=== PATIENT | female | born 1990 | race Caucasian/White ===

== ENCOUNTER 2025-05-13 17:21 | Outpatient (CLI) | payer BC, SELFPAY ==
--- OUTSIDE RECORDS SUMMARY | 2025-05-06 10:00 | XMS_ITS | Encounter Summary ---
Author Organization [facility] Address [address] [place] [address] Care Team Providers Care Retirement Actuary Name Role Phone Dario Jameson MD Primary Care Provider + Reason for Visit * Reason Comments Follow-up Hypertension weight loss efforts Encounter Details Date Type Department Care Team (Late st Contact Info) Description 05/06/2025 10:00 AM EST Office Visit [facility] [address] [place] [address] Dario Jameson MD [address] [place] [address] Primary hypertension (Primary Dx); Mild episode of depression; Class 2 severe obesity due to excess calories with serious comorbidity and body mass index (BMI) of 36.0 to 36.9 in adult Social History Tobacco Use Types Packs/Day Years Used Date Smoking Tobacco: Former Cigarettes 1 7 2 2016 Smokeless Tobacco: Never Comments:vapes Alcohol Use Standard Drinks/Week Comments Yes 0 (1 standard drink = 0.6 oz pur e alcohol) PHQ-2 Answer Date Recorded Retired PHQ-9: Brief Depression Severity Measure Score 0 10/16/2021 PHQ-2 Answer Date Recorded Patient Health Questionnaire-2 Score 0 07/09/2024 Comments No Sex and Gender Information Value Date Recorded Sex Assigned at Not on file Legal Sex Female 3:48 PM EDT Gender Identity Not on file Sexual Orientation Not on file Occupation Industry Job Start Date Job End Date unemployed Not on file Not on file Not on file Travel History Travel Start Travel End [place] 04/19/2025 04/21/2025 documented as of this encounter Last Filed Vital Signs Vital Sign Reading Time Taken Comments Blood Pressure 128/85 05/06/2025 9:59 AM EST Pulse 88 05/06/2025 9:59 AM EST Temperature 36.9 C (98.4 F) 05/06/2025 9:59 AM EST Respiratory Rate 20 05/06/2025 9:59 AM EST Oxygen Saturation 97% 05/06/2025 9:59 AM EST Inhaled Oxygen Concentration - - Weight 104 kg (230 lb 3.2 oz) 05/06/2025 9:59 AM EST Height 170.2 cm (5' 7 ) 05/06/2025 9:59 AM EST Body Mass Index 36.05 05/06/2025 9:59 AM EST documented in this encounter Progress Notes * Dario Jameson MD - 05/06/2025 10:00 AM EST Chief Complaint Patient presents with Follow-up Hypertension weight loss efforts Subjective Ellen Lynch is a 35 y.o. who presents for hypertension and obesity follow- up. She reports blood pressures of 120/80 at home with use of her Zestoretic. She continues on Trintellix for depressionwith anxious features. Symptoms are very well-controlled. Regarding obesity the low-dose Qsymia caused and over caffeinated feeling and she discontinued the medicine after a single dose The following portions of the patient's history were reviewed and updated as appropriate: allergies, current medications, past family history, past medical history, past social history, past surgicalhistory, and problem list. Review of Systems Objective Vital Signs: BP 128/85 Pulse 88 Temp 98.4 ??F (36.9 ??C) Resp 20 Ht 170.2 cm (67 ) Wt 104 kg (230 lb 3.2 oz) SpO2 97% BMI 36.05 kg/m?? Physical Exam Vitals reviewed. Constitutional: Appearance: Normal appearance. Neurological: Mental Status: She is alert. Psychiatric: Mood and Affect: Mood normal. Thought Content: Thought content normal. Result Review Assessment and Plan Diagnoses and all orders for this visit: 1. Primary hypertension (Primary) - lisinopril-hydrochlorothiazide (PRINZIDE,ZESTORETIC) 10-12.5 MG per tablet; Take 1 tablet by mouth Daily. Dispense: 90 tablet; Refill: 1 2. Mild episode of depression - Vortioxetine HBr (Trintellix) 10 MG tablet tablet; Take 1 tablet by mouth Daily With Breakfast. Dispense: 30 tablet; Refill: 5 3. Class 2 severe obesity due to excess calories with serious comorbidity and body mass index (BMI)of 36.0 to 36.9 in adult Plan 1. Hypertension. Controlled. Continue lisinopril HCTZ 02/24.5. Reassess in 6 months 2. Depression. In remission with use of Trintellix. Continue Trintellix 10 mg daily. Reassess in 6 months 3. Class II obesity. Weight has increased since last visit. Patient willing to retry low-dose Qsymia to assess if side effects wane. Patient will contact office with results of trial. If ineffective will discuss further weight loss options at follow-up Follow Up Return in about 6 months (around 11/04/2025) for Annual(no pap), Annual. Patient was given instructions and counseling regarding her condition or for health maintenance advice. Please see specific information pulled into the AVS if appropriate. documented in this encounter Plan of Treatment Upcoming Encounters Date Type Department Care Team (Late st Contact Info) Description 11/04/2025 2:15 PM EDT Office Visit [facility] [address] [facility] [place] [address] Dario Jameson MD [address] [address] documented as of this encounter Visit Diagnoses Diagnosis Primary hypertension- Primary Unspecified essential hypertension Mild episode of depression Depressive disorder, not elsewhere classified Class 2 severe obesity due to excess calories with serious comorbidity and body mass index (BMI) of 36.0 to 36.9 in adult documented in this encounter Additional Health Concerns Assessment Noted Time PHQ-2 Depression Total Score: 4 05/23/19 24 4:11 PM EST documented as of this encounter Care Teams Retirement Actuary Relationship Specialty Start Date End Date Dario Jameson MD [address] [place] [address] PCP - General Family Medicine 10/16/21 documented as of this encounter
[2025-05-13 20:33] LABS: Influenza A, PCR Not Detected (NotDetected); Influenza B, PCR Not Detected (NotDetected)
[2025-05-13 20:55] LABS: Monoscreen (Rapid) Negative (Negative)
[2025-05-13 23:28] LABS: Coronavirus 19, PCR Detected (NotDetected)
--- OUTSIDE RECORDS SUMMARY | 2025-05-14 12:16 | XMS_ITS | Clinical Summary ---
Author Organization [facility] Address [address] [place] [address] Care Team Providers Care First Dyer Name Role Phone Dario Jameson MD Primary Care Provider + Allergies Active Allergy Reactions Criticality Noted Date Comments Tirzepatide GI Intolerance High 08/13/2024 Severe nausea Medications levonorgestrel (MIRENA) 20 MCG/24HR IUD 1 each by Intrauterine route 1 (One) Time. Active omeprazole (priLOSEC) 20 MG capsule Take 1 capsule by mouth Daily. Pt takes OTC Active ondansetron ODT (ZOFRAN-ODT) [address] 1 tablet on the tongue Every 8 (Eight) Hours As Needed for Nausea. 30 tablet 025 Active lisinopril-hydroc hlorothiazide (PRINZIDE,ZESTORE TIC) 10-12.5 MG per tabletIndications :Primary hypertension Take 1 tablet by mouth Daily. 90 tablet 1 025 Active Vortioxetine HBr (Trintellix) 10 MG tablet tabletIndications :Mild episode of depression Take 1 tablet by mouth Daily With Breakfast. 30 tablet 5 025 Active Phentermine-Topir amate ER (Qsymia) 3.75-23 MG capsule sustained-release 24 hrIndications:Cla ss 1 obesity due to excess calories without serious comorbidity with body mass index (BMI) of 34.0 to 34.9 in adult Take 1 each by mouth Daily. 14 capsule 025 2024 Discontinued Vortioxetine HBr (Trintellix) 10 MG tablet tabletIndications :Mild episode of depression Take 1 tablet by mouth Daily With Breakfast. 30 tablet 3 025 2024 Discontinued(R eorder) lisinopril-hydroc hlorothiazide (PRINZIDE,ZESTORE TIC) 10-12.5 MG per tabletIndications :Primary hypertension Take 1 tablet by mouth once daily 90 tablet 025 2024 Discontinued lisinopril-hydroc hlorothiazide (PRINZIDE,ZESTORE TIC) 10-12.5 MG per tabletIndications :Primary hypertension Take 1 tablet by mouth once daily 90 tablet 025 2024 Discontinued(R eorder) Active Problems Problem Noted Date Diagnosed Date Primary hypertension 07/09/2024 Assessment & Plan (08/13/2024 4:45 PM EDT): Hypertension is stable and controlled Continue current treatment regimen. Dietary sodium restriction. Weight loss. Blood pressure will be reassessed in 3 months. Assessment & Plan (07/09/2024 4:34 PM EST): Patient has new onset Hypertension Ambulatory BP monitoring Medication changes per orders. Dietary sodium restriction. Counseled on importance of healthy eating and regular aerobic exercise Blood pressure will be reassessed in 4 weeks. Class 2 severe obesity due t o excess calories with serious comorbidity and body mass index (BMI) of 36.0 to 36.9 in adult 06/20/2023 Assessment & Plan (08/13/2024 4:46 PM EDT): Condition is unchanged and she experienced side effects of treatment. A trial of Wegovy will be initiated. Patient given 0.25 mg sample in office today and warned of same side effect profile as Zepbound. Patient will contact the office if there are side effects. If she is tolerating medication after her second dose she will be given a prescription which is anticipated to require a prior authorization. Weight will be reassessed in 3 months. If GLP-1 agonist or not tolerated phentermine is a reasonable alternative Assessment & Plan (07/09/2024 4:35 PM EST): Patient's (Body mass index is 34.9 kg/m .) indicates that they are obese (BMI >30) with health conditions that include hypertension . Weight is unchanged. BMI is above average; BMI management plan is completed. We discussed portion control, increasing exercise, and pharmacologic options including Zepbound . Surveillance labs ordered today Patient to begin Zepbound 2.5 mg in combination with reduced calorie diet. Due to associated nausea from previous use we will uptitrate to 5 mg at follow-up and likely continue 5 mg dosing for an extended period of time so patient can develop some tolerance to the side effects Assessment & Plan (08/15/2023 4:53 PM EDT): I agree with the patient that I suspect she had a viral illness as opposed to reaction to tirzepatide. She will restart tirzepatide 2.5 mg weekly. Continue ongoing lifestyle changes with both aerobic training and resistance training as well as dietary changes. Return for reassessment in 8 weeks Assessment & Plan (06/20/2023 5:06 PM EST): Patient's (Body mass index is 34.68 kg/m .) indicates that they are obese (BMI >30) with health conditions that include GERD . Weight is improving with lifestyle modifications. BMI is above average; BMI management plan is completed. We discussed portion control, increasing exercise, and pharmacologic options including tirzepatide . Patient will start Zepp bound 2.5 mg weekly then increasing to 5 mg weekly. She will return next week for baseline metabolic labs. Patient will follow-up to reassess her weight in 8 weeks. Side effects of medication including GI side effects were discussed. Mild episode of depression 06/20/2023 Assessment & Plan (06/20/2023 5:07 PM EST): Patient's depression is recurrent and is mild without psychosis. Their depression is currently in full remission and the condition is improving with treatment. This will be reassessed at the next regular appointment. F/U as described:patient will continue current medication therapy. Gastroesophageal reflux disease 08/16/2017 Vaginal delivery 11/29/2013 Anxiety and depression Encounters Date Type Department Care Team Description 05/06/2025 10:00 AM EST Office Visit [facility] [address] [place] [address] Dario Jameson MD Primary hypertension (Primary Dx); Mild episode of depression; Class 2 severe obesity due to excess calories with serious comorbidity and body mass index (BMI) of 36.0 to 36.9 in adult 05/06/2025 Travel 04/30/2025 Refill [facility] [address] [place] [address] Dario Jameson MD Primary hypertension 04/27/2025 Refill [facility] [address] [place] [address] Dario Jameson MD Mild episode of depression 03/10/2025 Refill [facility] [address] [place] [address] Dario Jameson MD Primary hypertension from Last 3 Months Immunizations Immunization Administration Dates Next Due 31-influenza Vac Quardvalent Preservativ 020 DTaP, Unspecified 12/12/1996 FluMist 2-49yrs 06/15/2017 Fluzone (or Fluarix & Flulav al for VFC) >6mos 05/23/2023,03/15/2019 HPV Quadrivalent 12/06/2008 Hep B, Adolescent or Pediatric 12/06/2008,2003,11/27/2003 MMR 12/12/1996 OPV 12/12/1996 Td (TDVAX) 11/27/2003,01/05/2000 Tdap 12/01/2013 Family History Medical History Relation Name Comments Diabetes Brother Obesity Brother Heart attack Father Hypertension Father Obesity Maternal Aunt Brain cancer Maternal Grandfather Cancer Maternal Grandmother pancrea tic cancer Diabetes Maternal Grandmother Hypertension Mother Migraines Mother Obesity Mother Diabetes Other greatgrandmother Heart attack Paternal Grandfather Hyperlipidemia Paternal Grandfather Hypertension Paternal Grandfather Stroke Paternal Grandfather No Known Problems Son Genaro Relation Name Status Comments Brother Alive Father Maternal Aunt Maternal Grandfather Alive Maternal Grandmother Alive Mother Alive Other greatgrandmother Paternal Grandfather Alive Paternal Grandmother Alive Son Genaro Alive Social History Tobacco Use Types Packs/Day Years Used Date Smoking Tobacco: Former Cigarettes 1 7 2 010 - 2016 Smokeless Tobacco: Never Tobacco Cessation:Counseling Given: Not Answered Comments:vapes Alcohol Use Standard Drinks/Week Comments Yes [...] file Travel History Travel Start Travel End [place] 04/19/2025 04/21/2025 Last Filed Vital Signs Vital Sign Reading [...] Mass Index 36.05 05/06/2025 9:59 AM EST Plan of Treatment Upcoming Encounters Date Type Department Care Team (Late st Contact Info) Description 11/04/2025 2:15 PM EDT Office Visit [facility] [address] [address] Dario Jameson MD [address] [address] Health Maintenance Due Date Last Done Comments Annual Gynecologic Pelvic and Breast Exam 1992 HEPATITIS C SCREENING 08/16/2017 ANNUAL PHYSICAL 11/14/2018 11/14/2017 PAP SMEAR 05/16/2019 05/16/2016 (Patient-Reported (Performed Externally)) TDAP/TD VACCINES (4 - Td or Tdap) 12/02/2023 12/01/2013, 11/27/2003, 01/05/2000 INFLUENZA VACCINE Completed 03/07/2025, , 03/06/2020, Additional history exists Pneumococcal Vaccine 0-49 Aged Out No longer eligible based on patient's age to complete this topic Insurance [facility] Subscriber Plan / Payer (Ef fective 2020-Present) Name:Ellen Lynch Relation to Subscriber:Spouse Name:HEATHERARTEM DENNIS Date of :1991 (Home) Address: [address] [place] [id number] Payer ID:[id number] (NAIC) Type:Not on file Address: [address] [place] [id number] Care Teams First Dyer Relationship Specialty Start Date End Date Dario James[place] [address] PCP - General Family Medicine 10/16/21
--- OUTSIDE RECORDS SUMMARY | 2025-05-14 12:16 | XMS_ITS | Encounter Summary ---
Author Organization [facility] Address [address] [place] [address] Care Team Providers Care Instrument Operator Name Role Phone Dario Jameson MD Primary Care Provider + Encounter Details Date Type Department Care Team (Latest Contact Info) Description 05/06/2025 Travel Social History Tobacco Use Types Packs/Day Years Used Date Smoking Tobacco: Former Cigarettes 1 2016 Smokeless Tobacco: Never Comments:vapes Alcohol Use [...] file Travel History Travel Start Travel End [place] 04/19/2025 04/21/2025 documented as of this encounter Plan of Treatment Upcoming Encounters Date Type Department Care Team (Late st Contact Info) Description 11/04/2025 2:15 PM EDT Office Visit [facility] [address] [facility] [place] [address] Dario Jameson MD [address] [facility] [place] [address] documented as of this encounter Visit Diagnoses Not on filedocumented in this encounter Additional Health Concerns Assessment Noted Time PHQ-2 Depression Total Score: 4 05/23/19 24 4:11 PM EST documented as of this encounter Care Teams Instrument Operator Relationship Specialty Start Date End Date Dario Jameson MD [address] [place] [address] PCP - General Family Medicine 10/16/21 documented as of this encounter
--- OUTSIDE RECORDS SUMMARY | 2025-05-14 12:16 | XMS_ITS | Clinical Summary ---
Author Organization [facility] Address [address] [place] [address] Care Team Providers Care Set Up And Lay Out Inspector Name Role Phone Dario Jameson MD Primary Care Provider [phone] Immunizations Immunization Administration Dates Next Due Influenza, injectable, quadrivalent 03/06/2020 Social History Tobacco Use Types Packs/Day Years Used Date Smoking Tobacco: Every Day Alcohol Use Standard Drinks/Week Comments Yes 0 (1 standard drink = 0.6 oz pur e alcohol) Comments Unknown Sex and Gender Information Value Date Recorded Sex Assigned at Not on file Legal Sex Female 7:04 PM EDT Gender Identity Not on file Sexual Orientation Not on file Last Filed Vital Signs Vital Sign Reading Time Taken Comments Blood Pressure 147/94 03/06/2020 11:11 AM EDT Pulse 78 03/06/2020 11:11 AM EDT Temperature - - Respiratory Rate - - Oxygen Saturation - - Inhaled Oxygen Concentration - - Weight 90 kg (198 lb 6.6 oz) 03/06/2020 11:11 AM EDT Height 170.2 cm (5' 7 ) 03/07/2018 1:34 PM EDT Body Mass Index 31.08 03/07/2018 1:34 PM EDT Plan of Treatment Upcoming Encounters Date Type Department Care Team (Late st Contact Info) Description 05/29/2025 1:20 PM EST Office Visit Obstetrics & Gynecology [address] [place] [address] Lesli Joshi, TRACKWALKER, CNM [address] [facility] [address] [place] [address] Health Maintenance Due Date Last Done Comments [facility]-Depression Screening 1992 [facility]-HIV Screening 1992 [facility]-Hepatitis C Screening 1992 [facility]-Infant/Child/Adol SDOH Screenings 1992 [facility]-IPV Vaccines (2 of 3 - 4-dose series) 01/09/1997 12/12/1996 [facility]-DTaP,Tdap,and Td Vaccines (4 - Tdap) 11/28/2003 11/27/2003, 01/05/2000, 12/12/1996 [facility]-Varicella Vaccines (1 of 2 - 13+ 2-dose series) 01/09/2005 HPV Vaccines (2 - 3-dose series) 01/03/2009 12/06/2008 [facility]- SDOH Screenings 01/09/2010 [facility]-Adult SDOH Screenings 01/09/2010 [facility]-Pap Smear 01/09/2013 [facility]-Cervical Cancer Screening 01/09/2022 [facility]-HPV/Cotest 01/09/2022 [id number] Vaccine (3 - 2024- season) 2025 11/07/2020, 10/10/2020 [facility]-Zoster Vaccines (1 of 2) 01/09/2042 [facility]-Hepatitis B Vaccines Completed 009, 01/29/2004, 11/27/2003 [facility]-Influenza Vaccine Completed 03/07/2025 , 05/23/2023, 03/06/2020, Additional history exists [facility]-HIB Vaccines Aged Out No longer e ligible based on patient's age to complete this topic [facility]-Hepatitis A Vaccines Aged Out No longer eligible based on patient's age to complete this topic [facility]-Pneumococcal Vaccine: Pediatrics (0 to 5 Years) and At-Risk Patients (6 to 49 Years) Aged Out No longer eligible based on patient's age to complete this topic [facility]-Rotavirus Vaccines Aged Out No lo nger eligible based on patient's age to complete this topic Insurance [place] [id number] JONNY Care Teams Set Up And Lay Out Inspector Relationship Specialty Start Date End Date Dario Jameson MD [address] [place] [address] PCP - General 05/07/25
--- OUTSIDE RECORDS SUMMARY | 2025-05-14 12:16 | XMS_ITS | Encounter Summary ---
Author Organization [facility] Address [address] [place] [address] Care Team Providers Care Fbi Profiler Name Role Phone Dario Jameson MD Primary Care Provider + Reason for Visit * Reason Comments Med Refill Encounter Details Date Type Department Care Team (Late st Contact Info) Description 04/30/2025 Refill [facility] [address] [place] [address] Dario Jameson MD [address] [place] [address] Primary hypertension Social History Tobacco Use Types Packs/Day Years Used Date Smoking Tobacco: Former Cigarettes 1 7 2 - 2016 Smokeless Tobacco: Never Comments:vapes Alcohol Use [...] file Travel History Travel Start Travel End [place] 04/19/2025 04/21/2025 documented as of this encounter Miscellaneous Notes * Telephone Encounter - [place] - 04/30/2025 11:35 AM EST APPOINTMENT SCHEDULED FOR 05/06/25 documented in this encounter Plan of Treatment Upcoming Encounters Date Type Department Care Team (Late st Contact Info) Description 11/04/2025 2:15 PM EDT Office Visit [facility] [address] [place] [address] Dario Jameson MD [address] [place] [address] documented as of this encounter Visit Diagnoses Diagnosis Primary hypertension Unspecified essential hypertension documented in this encounter Additional Health Concerns Assessment Noted Time PHQ-2 Depression Total Score: 4 05/23/19 24 4:11 PM EST documented as of this encounter Care Teams Fbi Profiler Relationship Specialty Start Date End Date Dario Jameson MD [address] [place] [address] PCP - General Family Medicine 10/16/21 documented as of this encounter
--- OUTSIDE RECORDS SUMMARY | 2025-05-14 12:16 | XMS_ITS | Encounter Summary ---
Author Organization [facility] Address [address] [place] [address] Care Team Providers Care Tablet Machine Operator Name Role Phone Dario Jameson MD Primary Care Provider + Reason for Visit * Reason Comments Med Refill Encounter Details Date Type Department Care Team (Late st Contact Info) Description 04/27/2025 Refill [facility] [address] [place] [address] Dario Jameson MD [address] [place] [address] Mild episode of depression Social History Tobacco Use Types Packs/Day Years [...] Travel Start Travel End [place] 04/19/2025 04/21/2025 documented as of this encounter Miscellaneous Notes * Telephone Encounter - Allyson Lan RegSched Rep - 04/30/2025 11:28 AM EST LEFT AN VOICEMAIL TO SCHEDULE A FOLLOW UP APPOINTMENT. HUB TO RELAY documented in this encounter Plan of Treatment Upcoming Encounters Date Type Department Care Team (Late st Contact Info) Description 11/04/2025 2:15 PM EDT Office Visit [facility] [address] [place] [address] Dario Jameson MD [address] [place] [address] documented as of this encounter Visit Diagnoses Diagnosis Mild episode of depression Depressive disorder, not elsewhere classified documented in this encounter Additional Health Concerns Assessment Noted Time PHQ-2 Depression Total Score: 4 05/23/19 24 4:11 PM EST documented as of this encounter Care Teams Tablet Machine Operator Relationship Specialty Start Date End Date Dario Jameson MD [address] [place] [address] PCP - General Family Medicine 10/16/21 documented as of this encounter
== END 2025-05-13 23:59 | disposition home or self-care (01) ==
LOC: LAB.DROPOF 05-14 12:12
PROVIDERS: Visit Provider Nurse Practitioner
DX: J06.9 Acute upper respiratory infection, unspecified (principal); J02.9 Acute pharyngitis, unspecified
CPT/HCPCS: 86318; 87631